=== PATIENT | female | born 2000 | race Caucasian/White ===

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

== ENCOUNTER 2020-04-17 21:01 | Emergency (ER) | payer SELFPAY ==
[2020-04-17 21:07] VITALS: BP 112/65
--- NOTE | 2020-04-17 21:23 | ER Document Report ---
HPI - HPI Time Seen by Provider: 04/17/20 21:19 Pain Level: 3 Notes: 19-year-old female patient presenting to the emergency department with concern for swollen labia and abnormal discharge. - REPRODUCTIVE LMP: MARCH 10 Reproductive: DENIES: : Past Medical History - Social History Smoking Status: Current Every Day Smoker Frequency of alcohol use: None Drug Abuse: None Patient has homicidal ideation: No Renal/ Medical History: Denies: Hx Peritoneal Dialysis Course - Vital Signs Vital signs: Temp Pulse Resp BP Pulse Ox 98.5 F 82 18 112/65 98 04/17/20 21:16 04/17/20 21:06 04/17/20 21:06 04/17/20 21:06 04/17/20 21:06
--- NOTE | 2020-04-18 00:54 | ER Document Report ---
ED Medical Screen (RME) - General Chief Complaint: Vaginal Itching Stated Complaint: SWOLLEN LABIA, VAGINAL PAIN & ITCHINESS Time Seen by Provider: 04/17/20 21:19 Mode of Arrival: Ambulatory Information source: Patient Notes: 19-year-old female patient presenting to the emergency department with concern for swollen labia and abnormal discharge. She does report some dysuria but denies any frequency. She states she infections [id number] treatment which seemed to make things worse. Was examined in triage, patient appears well nontoxic. I have greeted and performed a rapid initial assessment of this patient. A comprehensive ED assessment and evaluation of the patient, analysis of test results and completion of the medical decision making process will be conducted by additional ED providers. I have specifically instructed the patient or family members with the patient to immediately return to any nursing staff should anything change in the patient's condition or with their chief complaint. - Related Data Allergies/Adverse Reactions: No Known Allergies Allergy (Unverified 04/17/20 21:15) Past Medical History - Social History Frequency of alcohol use: None Drug Abuse: None Renal/ Medical History: Denies: Hx Peritoneal Dialysis Physical Exam - Vital signs Vitals: Temp Pulse Resp BP Pulse Ox 98.5 F 82 18 112/65 98 04/17/20 21:06 04/17/20 21:06 04/17/20 21:06 04/17/20 21:06 04/17/20 21:06 Course - Vital Signs Vital signs: Temp Pulse Resp BP Pulse Ox 98.5 F 82 18 112/65 98 04/17/20 21:16 04/17/20 21:06 04/17/20 21:06 04/17/20 21:06 04/17/20 21:06
== END 2020-04-18 02:27 | disposition left against medical advice (07) ==
LOC: ER 21:01
DX: R22.2 Localized swelling, mass and lump, trunk (principal); R30.0 Dysuria; Z53.20 Procedure and treatment not carried out because of patient's decision for unspecified reasons
CPT/HCPCS: 99281